=== PATIENT | male | born 2000 | race Caucasian/White ===

== ENCOUNTER 2023-02-17 21:41 | Emergency (ER) | payer BC, SELFPAY ==
[2023-02-17 21:50] VITALS: BP 158/90; PULSE 95; RESP 18; TEMP 36.5; O2SAT 98; BMI 40.6
--- NOTE | 2023-02-17 22:16 | XRR_ITS ---
PROCEDURE INFORMATION: Exam: XR Left Tibia and Fibula Exam date and time: 02/17/2023 10:25 PM Age: 23 years old Clinical indication: Pain; Lower leg; Left; Additional info: Injury, leg got pinned between cows head and truck TECHNIQUE: Imaging protocol: Radiologic exam of the left tibia and fibula. Views: 2 views. COMPARISON: No relevant prior studies available. FINDINGS: Bones/joints: Normal. Soft tissues: Normal. XR/XR tibia fibula LT 2V [id number] IMPRESSION: No acute findings.
[2023-02-17 23:25] VITALS: PULSE 90
[2023-02-17 23:30] VITALS: BP 155/95; PULSE 97; RESP 19; O2SAT 98
--- NOTE | 2023-02-17 23:31 | ED_ITS ---
HPI - Extremity Problem General: Chief complaint: Extremity Injury, Lower Stated complaint: left leg injury Time Seen by Provider: 02/17/23 22:33 Source: patient Mode of arrival: ambulatory Limitations: no limitations History of Present Illness: 23-year-old male states he is pending to gait by a cow this afternoon. He states been having pain to his left lower ankle able to ambulate states its painful ambulate rates his pain a 4 out of 10 pain is improved with rest denies any other injuries. Associated symptoms: Deny chest pain, fever(s) or rash Review of Systems Const: Denies: fever(s) or chills Eyes: Denies: eye discomfort ENMT: Denies: throat pain or dental pain Card: Denies: chest pain Resp: Denies: dyspnea GI: Denies: abdominal pain, nausea, vomiting or diarrhea Musc: Reports: extremity pain; Denies: neck pain or back pain Skin/Breast: Denies: rash Physical Exam Const: COMMON NORMALS: no acute distress and patient oriented x3 HENMT: COMMON NORMALS: normocephalic and atraumatic HEAD & SCALP: normocephalic and atraumatic Eye: COMMON NORMALS: conjunctivae normal CONJUNCTIVA: Yes conjunctivae normal Neck/C-Spine: COMMON NORMALS: supple Chest: COMMONS NORMALS: normal inspection of the chest Resp: COMMON NORMALS: normal respiratory effort Cardio: COMMON NORMALS: regular rate and regular rhythm RATE: regular rate RHYTHM: regular rhythm Extremity: NARRATIVE EXTREMITY EXAM: Contusion along with tenderness to left lower leg no obvious deformities distal pulses intact compartments are soft Neuro: COMMON NORMALS: patient oriented x3 Course Vital Signs: Vital signs: Vital Signs Temperature 97.7 F 02/17/23 21:50 Pulse Rate 90 02/17/23 23:25 Respiratory Rate 18 02/17/23 21:50 Blood Pressure 158/90 02/17/23 21:50 Pulse Oximetry 98 02/17/23 21:50 Oxygen Delivery Me thod Room Air 02/17/23 21:50 MDM - Extremity (Nontraumatic) Medical Decision Making Patient presents with leg contusion no signs of fracture no signs of compartment syndrome he is well-appearing here he is stable for discharge he is to follow-up with PCP and return if worsening. Medical Records I reviewed the patient's medical records. Lab Data Radiology Impressions Tibia/Fibula X-Ray 02/17/23 22:16 IMPRESSION: No acute findings. Discharge Plan Discharge Patient Disposition: Home Clinical Impression: Contusion of left leg Condition: Stable Prescriptions: New naproxen [Naprosyn] 500 mg tablet 500 mg PO BID PRN (Reason: pain) Qty: 20 0RF Discharge Orders: Discharge ED (Routine); Ordered 02/17/23 Ordered By: Sagar Mei Discharge Diet: Advance as tolerated Discharge Activity: Resume usual activity Patient Instructions: Contusion in Adults (ED) Coding Level of Care Code ED Technology Instructor for [employer]
[2023-02-17] MEDS: naproxen 500 mg Tablet PO (23:35)
[2023-02-17 23:42] VITALS: BP 155/95; PULSE 98; RESP 17; O2SAT 97
--- NOTE | 2023-02-18 13:21 | DCPLANNER ---
manager [employer] called patient due to no primary care physician - patient is established with a provider.
== END 2023-02-17 23:51 | disposition home or self-care (01) ==
PROVIDERS: Emergency Provider Emergency Medicine
DX: S80.12XA Contusion of left lower leg, initial encounter (principal); W55.22XA Struck by cow, initial encounter
CPT/HCPCS: 73590; 99283